=== PATIENT | male | born 1975 | race Caucasian/White ===

== ENCOUNTER 2017-09-17 01:10 | Emergency (ER) | payer OTHER ==
[2017-09-17] MEDS ORDERED: NA CHLORIDE 0.9% 1,000 ML ONE (02:12)
[2017-09-17 02:17] LABS: Absolute Lymphocytes (CBC) 2.2 K/uL (0.7-4.9); Absolute Monocytes 1.6 K/uL (0.1-1.3); Absolute Neutrophil 10.7 K/uL (1.8-8.0); Basophils % 0.3 % (0-1.3); Eosinophils % 1.5 % (0-4.4); Hematocrit 46.3 % (39.6-49.0); Lymphocytes % 14.7 % (15.3-44.8); MCV 91.4 fL (80-100); Monocytes % 10.9 % (3.3-12.3); RBC Red Blood Cell Count 5.07 M/uL (4.33-5.43)
[2017-09-17 02:23] LABS: Urine Blood 2+ (NEG); Urine Glucose NEGATIVE (NEG); Urine Protein NEGATIVE (NEG); Urine Specific Gravity >1.030 (1.005-1.030)
[2017-09-17 02:27] LABS: Urine Bacteria <20 /HPF (NONE SEEN); Urine Culture Reflex Order NOT NEEDED
[2017-09-17 02:28] LABS: Calcium Oxalate Crystals- Ur FEW (NONE SEEN)
[2017-09-17 02:46] LABS: Bilirubin Direct 0.1 mg/dL (0-0.2); Bilirubin Total 0.7 mg/dL (0.2-1.0); Potassium 3.9 mmol/L (3.5-5.1); Protein, Total 7.9 g/dL (6.4-8.2)
--- NOTE | 2017-09-17 05:30 | ER ---
Nurse's Notes [facility] Name: Hilario Sutton Age: 41 yrs Sex: Male : 1975 Arrival Date: 09/17/2017 Time: 01:14 Bed 13 Private MD: Diagnosis: Calculus of ureter Presentation: 09/17 01:39 Presenting complaint: Patient states: "I think I have a UTI, I had blood in my urine bs1 yesterday, I've been drinking a lot of water, the blood cleared up but I feel like I have the urge to go but I cant.". Transition of care: patient was not received from another setting of care. Onset of symptoms was September 16, 2017. Risk Assessment: Do you want to hurt yourself or someone else? Patient reports no desire to harm self or others. Initial Sepsis Screen: Does the patient meet any 2 criteria? No. Patient's initial sepsis screen is negative. Does the patient have a suspected source of infection? No. Patient's initial sepsis screen is negative. Care prior to arrival: None. 01:39 Method Of Arrival: Ambulatory bs1 01:39 Acuity: NERY 4 bs1 Historical: - Allergies: 01:41 No Known Allergies; bs1 - Home Meds: 01:41 None [Active]; bs1 - PMHx: 01:41 None; bs1 - PSHx: 01:41 None; bs1 - Immunization history:: Adult Immunizations up to date. - Social history:: Smoking status: Patient/guardian denies using tobacco. - Ebola Screening: : Patient negative for fever greater than or equal to 101.5 degrees Fahrenheit, and additional compatible Ebola Virus Disease symptoms Patient denies exposure to infectious person. Screenin:42 Abuse screen: Denies threats or abuse. Denies injuries from another. Nutritional bs1 screening: No deficits noted. Tuberculosis screening: No symptoms or risk factors identified. Fall Risk None identified. Assessment: 02:30 General: Appears in no apparent distress. uncomfortable, obese, Behavior is calm, bs1 cooperative, appropriate for age. Pain: Denies pain. Neuro: Level of Consciousness is awake, alert, obeys commands, Oriented to person, place, time, situation, Appropriate for age. Cardiovascular: Denies chest pain, shortness of breath, Heart tones S1 S2 present Capillary refill < 3 seconds Patient's skin is warm and dry. Respiratory: Airway is patent Trachea midline Respiratory effort is even, unlabored, Respiratory pattern is regular, symmetrical, Breath sounds are clear bilaterally. GI: Abdomen is round non-distended, Bowel sounds present X 4 quads. : Urine is blood tinged, yancy Reports inability to void, urgency, left flank pain during the day yesterday, none noted or reported at this time. Denies burning with urination. EENT: No signs and/or symptoms were reported regarding the EENT system. Derm: Skin is intact, Skin is pink, warm \\T\\ dry. normal. Musculoskeletal: Circulation, motion, and sensation intact. Capillary refill < 3 seconds, Range of motion: intact in all extremities. 03:30 Reassessment: Patient appears in no apparent distress at this time. Patient and/or bs1 family updated on plan of care and expected duration. Pain level reassessed. Patient is alert, oriented x 3, equal unlabored respirations, skin warm/dry/pink. Patient denies pain at this time. 04:45 Reassessment: Patient appears in no apparent distress at this time. No changes from bs1 previously documented assessment. Patient and/or family updated on plan of care and expected duration. Pain level reassessed. Patient is alert, oriented x 3, equal unlabored respirations, skin warm/dry/pink. Patient denies any blood in urine since NS bolus given. Patient states symptoms have improved. 04:49 Reassessment: Report given to HERNANDO Dimas informed of Pending CT scan. bs1 04:55 Reassessment: received patient lying on bed comfortable. vital signs stable. awaiting rv ct scan result. 05:45 Reassessment: PT D/C HOME AMBULATORY, DX WITH URETERAL CALCULUS. bp Vital Signs: 01:42 BP 149 / 69 LA Sitting (/lg); Pulse 88 LA; Resp 17; Temp 98.8(O); Pulse Ox 100% on R/A; bs1 Weight 175.09 kg (R); Height 5 ft. 11 in. (180.34 cm); Pain 0/10; 02:42 BP 136 / 60; Pulse 80; Resp 16; Pulse Ox 99% on R/A; bs1 03:42 BP 133 / 62; Pulse 72; Resp 17; Pulse Ox 99% on R/A; Pain 0/10; bs1 04:42 BP 125 / 88; Pulse 73; Resp 16 S; Temp 98.5(O); Pulse Ox 100% on R/A; Pain 0/10; bs1 01:42 Body Mass Index 53.84 (175.09 kg, 180.34 cm) bs1 ED Course: 01:14 Patient arrived in ED. es 01:36 Elaine Weber, RN is Primary Nurse. bs1 01:40 Triage completed. bs1 01:48 León Whitaker NP is PHCP. pm1 01:48 Lexa Mcintyre MD is Attending Physician. pm1 02:05 Inserted saline lock: 22 gauge in right forearm, using aseptic technique. Blood bs1 collected. 02:29 Patient has correct armband on for positive identification. Bed in low position. Call bs1 light in reach. Side rails up X 1. Pulse ox on. NIBP on. 02:30 Arm band placed on right wrist. bs1 03:26 CT Stone Protocol In Process Unspecified. EDMS 03:31 No provider procedures requiring assistance completed. bs1 04:10 CT completed. Patient tolerated procedure well. Patient moved to [place] WALKED. Patient eh moved back from [place]. 05:30 Freddy Nunez MD is Referral Physician. gs 05:45 IV discontinued, intact, bleeding controlled, No redness/swelling at site. Pressure bp dressing applied. Administered Medications: 02:13 Drug: NS 0.9% 1000 ml Route: IV; Rate: 1000 ml; Site: right forearm; bs1 06:02 Follow up: IV Status: Completed infusion; IV Intake: 1000ml bp 05:45 Drug: TORadol 30 mg Route: IVP; Site: right antecubital; bp 06:01 Follow up: Response: Medication administered at discharge. bp Intake: 06:02 IV: 1000ml; Total: 1000ml. bp Outcome: 05:30 Discharge ordered by . gs 05:45 Discharged to home ambulatory. bp 05:45 Condition: stable 05:45 Discharge instructions given to patient, Instructed on discharge instructions, follow up and referral plans. medication usage, Demonstrated understanding of instructions, follow-up care, medications, Prescriptions given X 1. 06:02 Patient left the ED. bp Signatures: Dispatcher [employer] EDPA Carlton, Madalyn es Aaron Bueno Patrick, TISSUE REWINDER TISSUE REWINDER pm1 Lexa Mcintyre MD MD gs Wing Millan, RN RN bp Elaine Weber, RN RN bs1 Itz Adorno, HERNANDO RN rv
--- NOTE | 2017-09-17 05:30 | EDPHYS ---
Physician Documentation [facility] Name: Hilario Sutton Age: 41 yrs Sex: Male : 1975 Arrival Date: 09/17/2017 Time: 01:14 Bed 13 Private MD: ED Physician Lexa Mcintyre HPI: 09/17 02:15 This 41 yrs old Male presents to ER via Ambulatory with complaints of Urinary pm1 Problem. 02:15 The patient presents with urinary symptoms, Hematuria. Onset: The symptoms/episode pm1 began/occurred yesterday. Modifying factors: The symptoms are alleviated by nothing, the symptoms are aggravated by nothing. Associated signs and symptoms: Pertinent positives: left flank pain, Pertinent negatives: abdominal pain, constipation, diarrhea, fever, nausea, vomiting. Severity of symptoms: in the emergency department the symptoms have improved. The patient has not experienced similar symptoms in the past. The patient has not recently seen a physician, and does not have an established primary care provider. Historical: - Allergies: 01:41 No Known Allergies; bs1 - Home Meds: 01:41 None [Active]; bs1 - PMHx: 01:41 None; bs1 - PSHx: 01:41 None; bs1 - Immunization history:: Adult Immunizations up to date. - Social history:: Smoking status: Patient/guardian denies using tobacco. - Ebola Screening: : Patient negative for fever greater than or equal to 101.5 degrees Fahrenheit, and additional compatible Ebola Virus Disease symptoms Patient denies exposure to infectious person. ROS: 02:15 Constitutional: Negative for fever, chills, and weight loss, Eyes: Negative for injury, pm1 pain, redness, and discharge, ENT: Negative for injury, pain, and discharge, Neck: Negative for injury, pain, and swelling, Cardiovascular: Negative for chest pain, palpitations, and edema, Respiratory: Negative for shortness of breath, cough, wheezing, and pleuritic chest pain, Abdomen/GI: Negative for abdominal pain, nausea, vomiting, diarrhea, and constipation. 02:15 MS/Extremity: Negative for injury and deformity, Skin: Negative for injury, rash, and discoloration, Neuro: Negative for headache, weakness, numbness, tingling, and seizure. 02:15 Back: Positive for flank pain, on the left. 02:15 : Positive for hematuria, difficulty urinating. Exam: 02:15 Constitutional: This is a well developed, well nourished patient who is awake, alert, pm1 and in no acute distress. Head/Face: Normocephalic, atraumatic. Eyes: Pupils equal round and reactive to light, extra-ocular motions intact. Lids and lashes normal. Conjunctiva and sclera are non-icteric and not injected. Cornea within normal limits. Periorbital areas with no swelling, redness, or edema. ENT: Nares patent. No nasal discharge, no septal abnormalities noted. Tympanic membranes are normal and external auditory canals are clear. Oropharynx with no redness, swelling, or masses, exudates, or evidence of obstruction, uvula midline. Mucous membranes moist. Neck: Trachea midline, no thyromegaly or masses palpated, and no cervical lymphadenopathy. Supple, full range of motion without nuchal rigidity, or vertebral point tenderness. No Meningismus. Chest/axilla: Normal chest wall appearance and motion. Nontender with no deformity. No lesions are appreciated. Cardiovascular: Regular rate and rhythm with a normal S1 and S2. No gallops, murmurs, or rubs. No pulse deficits. Respiratory: Lungs have equal breath sounds bilaterally, clear to auscultation and percussion. No rales, rhonchi or wheezes noted. No increased work of breathing, no retractions or nasal flaring. Abdomen/GI: Soft, non-tender, with normal bowel sounds. No distension or tympany. No guarding or rebound. No evidence of tenderness throughout. Back: No spinal tenderness. No costovertebral tenderness. Full range of motion. Skin: Warm, dry with normal turgor. Normal color with no rashes, no lesions, and no evidence of cellulitis. MS/ Extremity: Pulses equal, no cyanosis. Neurovascular intact. Full, normal range of motion. 02:15 Neuro: Orientation: is normal, Motor: is normal, moves all fours, Gait: is steady, at a normal pace, without difficulty. Vital Signs: 01:42 BP 149 / 69 LA Sitting (/lg); Pulse 88 LA; Resp 17; Temp 98.8(O); Pulse Ox 100% on R/A; bs1 Weight 175.09 kg (R); Height 5 ft. 11 in. (180.34 cm); Pain 0/10; 02:42 BP 136 / 60; Pulse 80; Resp 16; Pulse Ox 99% on R/A; bs1 03:42 BP 133 / 62; Pulse 72; Resp 17; Pulse Ox 99% on R/A; Pain 0/10; bs1 04:42 BP 125 / 88; Pulse 73; Resp 16 S; Temp 98.5(O); Pulse Ox 100% on R/A; Pain 0/10; bs1 01:42 Body Mass Index 53.84 (175.09 kg, 180.34 cm) bs1 MDM: 01:56 Patient medically screened. pm1 03:05 Data reviewed: vital signs. Data interpreted: Pulse oximetry: on room air is 100 %. pm1 Interpretation: normal. 09/17 01:49 Order name: Basic Metabolic Panel pm1 09/17 01:49 Order name: CBC with Diff pm1 09/17 01:49 Order name: Creatinine for Radiology pm1 09/17 01:49 Order name: Hepatic Function; Complete Time: 02:52 pm1 09/17 01:49 Order name: Lipase; Complete Time: 02:52 pm1 09/17 01:49 Order name: Urine Microscopic Only; Complete Time: 02:52 pm1 09/17 01:49 Order name: IV Saline Lock; Complete Time: 02:29 pm1 09/17 01:49 Order name: Basic Metabolic Panel; Complete Time: 02:52 EDMS 09/17 01:49 Order name: CBC with Automated Diff; Complete Time: 02:52 EDMS 09/17 02:12 Order name: Urine Dipstick--Ancillary (enter results); Complete Time: 02:52 2 09/17 02:52 Order name: CT Stone Protocol pm1 09/17 01:49 Order name: Labs collected and sent; Complete Time: 02:29 pm1 09/17 01:49 Order name: Urine Dipstick-Ancillary (obtain specimen); Complete Time: 02:30 pm1 Administered Medications: 02:13 Drug: NS 0.9% 1000 ml Route: IV; Rate: 1000 ml; Site: right forearm; bs1 06:02 Follow up: IV Status: Completed infusion; IV Intake: 1000ml bp 05:45 Drug: TORadol 30 mg Route: IVP; Site: right antecubital; bp 06:01 Follow up: Response: Medication administered at discharge. bp Disposition: 19:06 Co-signature as Attending Physician, Lexa Mcintyre MD. Disposition: 09/17/17 05:30 Discharged to Home. Impression: Calculus of ureter. - Condition is Stable. - Discharge Instructions: Kidney Stones, Ureteral Colic. - Prescriptions for Tylenol- Codeine #4 300-60 mg Oral Tablet - take 1 tablet by ORAL route every 6 hours As needed; 10 tablet. - Medication Reconciliation Form, Thank You Letter, Antibiotic Education, Prescription Opioid Use form. - Follow up: Freddy Nunez MD; When: 2 - 3 days; Reason: Re-evaluation by your physician. Signatures: Dispatcher [employer] EDCO León Whitaker, PLASTIC FINISHER PLASTIC FINISHER pm1 Lexa Mcintyre MD MD Wing Millan, RN RN bp Elaine Weber, RN RN bs1 Corrections: (The following items were deleted from the chart) 02:43 01:49 Creatinine (Radiology Only) ordered. [facility] 06:02 05:30 09/17/2017 05:30 Discharged to Home. Impression: Calculus of ureter. Condition is bp Stable. Forms are Medication Reconciliation Form, Thank You Letter, Antibiotic Education, Prescription Opioid Use. Follow up: Freddy Nunez; When: 2 - 3 days; Reason: Re-evaluation by your physician.
[2017-09-17] MEDS ORDERED: KETOROLAC 30 MG/ML INJ ONE (05:39)
--- NOTE | 2017-09-17 10:00 | RAD REPORT ---
EXAM DESCRIPTION: CT - Stone Protocol - 09/17/2017 6:26 am CLINICAL HISTORY: Abdominal pain. Left flank COMPARISON: None. TECHNIQUE: Computed axial tomography of the abdomen pelvis was obtained without oral or IV contrast. Lack of IV and oral contrast limits evaluation of solid organs, bowel, and vessels. Coronal reformat tasha images were obtained and reviewed. A preliminary report was generated by [employer] and maverick rollins prior to this dictation All CT scans are performed using dose optimization technique as appropriate and may include automated exposure control or mA/KV adjustment according to patient size. FINDINGS: Mild left hydronephrosis is seen. A renal calculus is not seen. A 2 millimeter calculus is present at the left ureterovesical junction. A bladder calculus is not present. The liver, spleen, pancreas and adrenals appear grossly normal There is no evidence of diverticulitis. The appendix appears normal. A small umbilical hernia contain s fat IMPRESSION: A 2 millimeter calculus is present at the left ureterovesical junction which results in mild left hydronephrosis
== END 2017-09-17 06:02 | disposition home or self-care (01) ==
LOC: ER 01:10
DX: N20.1 Calculus of ureter (principal)
CPT/HCPCS: 36415; 74176; 76377; 80048; 80076; 81003; 81015; 83690; 85025; 96361; 96374; 99284; J7030

== ENCOUNTER 2017-11-11 10:00 | Day surgery (SDC) | payer OTHER ==
--- NOTE | 2017-11-10 16:06 | RAD REPORT ---
EXAM DESCRIPTION: Samreen Joshi (2 Views)11/10/2017 4:01 pm CLINICAL HISTORY: Abdominal pain/preop for genitourinary calculus COMPARISON: None FINDINGS: The lungs appear clear of acute infiltrate. The heart is normal size IMPRESSION: No acute abnormalities displayed
[2017-11-10 16:31] LABS: Absolute Neutrophil 8.8 K/uL (1.8-8.0); Hematocrit 46.1 % (39.6-49.0); Lymphocytes % 16.5 % (15.3-44.8); MCH 30.9 pg (27.0-35.0); MCV 92.6 fL (80-100); MPV 9.9 fL (7.6-11.3); Monocytes % 8.2 % (3.3-12.3); RBC Red Blood Cell Count 4.98 M/uL (4.33-5.43); Urine Appearance CLOUDY; Urine Bilirubin NEGATIVE (NEG); Urine Blood 3+ (NEG); Urine Color YELLOW; Urine Glucose NEGATIVE (NEG); Urine Protein NEGATIVE (NEG); Urine Specific Gravity >=1.030 (1.005-1.030); Urine pH 5.5 (5.0-7.0)
[2017-11-10 16:36] LABS: Protime INR 0.97
[2017-11-10 16:42] LABS: Potassium 3.9 mmol/L (3.5-5.1); Urine Amorphous Sediment 1+ /HPF (NONE SEEN); Urine Bacteria NONE SEEN /HPF (NONE SEEN); Urine Culture Reflex Order NOT NEEDED; Urine Microscopic Reflex ORDER UMIC; Urine RBC >50 /HPF (NONE SEEN)
[2017-11-10 16:50] LABS: Phosphorus 4.6 mg/dL (2.5-4.9); Uric Acid 9.3 mg/dL (3.5-7.2)
--- NOTE | 2017-11-11 09:04 | EKG ---
Test Date: 2017-11-10 Test Time: 16:04:21 [employer] Worker: RACH MEASUREMENT RESULTS: Intervals: Rate: 80 GA: 116 QRSD: 90 QT: 386 QTc: 445 Isabella: P: 29 GA: 116 QRS: 28 T: 69 INTERPRETIVE STATEMENTS: Normal sinus rhythm Nonspecific ST and T wave abnormality Abnormal ECG No previous ECG available for comparison Electronically Signed On 11-11-17 09:03:28 CDT by Jaison Lock
[2017-11-11] MEDS ORDERED: GENTAMICIN 100 MG/100 ML BAG 100 MG/100 ML BAG IV ONE (10:40)
[2017-11-11] MEDS ORDERED: Ringers Lactate 1,000 ML IV ONE (10:40)
--- NOTE | 2017-11-11 10:51 | RAD REPORT ---
EXAM DESCRIPTION: RAD - Abdomen 1 View (KUB) - 11/11/2017 10:33 am CLINICAL HISTORY: Flank pain Pain COMPARISON: Abdomen Pelvis W/Wo Contrast dated 11/10/2017 FINDINGS: The bowel gas pattern is non-obstructive. No evidence of free air or pneumatosis. There is contrast in the left-sided renal pelvis. This likely related to the obstructing calculus close to th e left UPJ.
[2017-11-11] MEDS ORDERED: LIDOCAINE 1% MPF 5 ML VIAL ONE (11:59)
[2017-11-11] MEDS ORDERED: PROPOFOL 200 MG/20 ML VIAL IV ONE ×2 (11:59→12:20)
[2017-11-11] MEDS ORDERED: FENTANYL CITR 100 MCG/2 ML ONE (11:59)
[2017-11-11] MEDS ORDERED: ROCURONIUM 50 MG/5 ML VIAL IV ONE (12:07)
[2017-11-11] MEDS ORDERED: EPHEDRINE SULF 50 MG/10 ML SYR ONE (12:33)
[2017-11-11] MEDS ORDERED: ONDANSETRON HCL 40 MG/20 ML VIAL ONE (12:39)
[2017-11-11] MEDS ORDERED: KETOROLAC 30 MG/ML INJ ONE (12:39)
--- NOTE | 2017-11-11 12:58 | RAD REPORT ---
EXAM DESCRIPTION: RAD - Urography Retrograde - 11/11/2017 12:38 pm CLINICAL HISTORY: Left ureteral stent placement, left-sided kidney stone COMPARISON: None. FINDINGS: Fluoroscopic assisted placement of a left ureteral stent performed. Two cine loop acquisit ions were obtained. Fluoro time was 1 minutes 3 seconds. No suspicious or unexpected finding. IMPRESSION: Fluoroscopic assisted placement of a left ureteral stent. No suspicious or unexpected fi nding.
[2017-11-11] MEDS ORDERED: SUCCINYLCHOLINE 20 MG/ML (10 ML) IV ONE (13:27)
[2017-11-11] MEDS ORDERED: OXYBUTYNIN CHLORIDE 5 MG TAB ONE (13:43)
[2017-11-11] MEDS ORDERED: HYDROCODONE/APAP 10/325 TAB ONE (13:43)
== END 2017-11-11 14:25 | disposition home or self-care (01) ==
LOC: OR 10:00
PROVIDERS: ATTEND Urology
PROC: 0WHR8YZ Insertion of Other Device into Genitourinary Tract, Via Natural or Artificial Opening Endoscopic (ICD-10-PCS; 2017-11-11)
PROC: BT1FZZZ Fluoroscopy of Left Kidney, Ureter and Bladder (ICD-10-PCS; 2017-11-11)
PROC: 0T778DZ Dilation of Left Ureter with Intraluminal Device, Via Natural or Artificial Opening Endoscopic (ICD-10-PCS; principal; 2017-11-11 12:00)
DX: N20.1 Calculus of ureter (principal); N39.0 Urinary tract infection, site not specified; Q62.39 Other obstructive defects of renal pelvis and ureter; E66.9 Obesity, unspecified; Z87.891 Personal history of nicotine dependence; Z83.3 Family history of diabetes mellitus
CPT/HCPCS: 36415; 71046; 74018; 74420; 80048; 81003; 81015; 84100; 84550; 85025; 85610; 85730; 87077; 87086; 87088; 87186; 93005; J0330; J1580; J2405; J3010; Q9967

== ENCOUNTER 2018-09-18 00:24 | Emergency (ER) | payer OTHER ==
[2018-09-18 01:26] LABS: Urine Bacteria <20 /HPF (NONE SEEN); Urine Culture Reflex Order NOT NEEDED; Urine RBC >50 /HPF (NONE SEEN)
[2018-09-18] MEDS ORDERED: KETOROLAC 30 MG/ML INJ ONE ×2 (01:39→03:45)
[2018-09-18] MEDS ORDERED: ONDANSETRON 4 MG/2 ML VIAL ONE (01:39)
[2018-09-18 01:49] LABS: Basophils % 0.5 % (0-1.3); Eosinophils % 4.2 % (0-4.4); Hematocrit 46.5 % (39.6-49.0); Lymphocytes % 18.6 % (15.3-44.8); MPV 9.2 fL (7.6-11.3); Monocytes % 10.4 % (3.3-12.3); RBC Red Blood Cell Count 5.13 M/uL (4.33-5.43)
[2018-09-18 02:11] LABS: ALT/SGPT 82 U/L (12-78); AST/SGOT 31 U/L (15-37); Albumin 3.7 g/dL (3.4-5.0); Alkaline Phosphatase 72 U/L (45-117); BUN Blood Urea Nitrogen 17 mg/dL (7-18); Bicarbonate 24 mmol/L (21-32); Bilirubin Direct < 0.1 mg/dL (0-0.2); Bilirubin Total 0.4 mg/dL (0.2-1.0); Glucose Level 117 mg/dL (74-106); Lipase 79 U/L (73-393); Potassium 4.1 mmol/L (3.5-5.1); Protein, Total 7.2 g/dL (6.4-8.2); Sodium Level 138 mmol/L (136-145)
[2018-09-18] MEDS ORDERED: NA CHLORIDE 0.9% 1,000 ML ONE (02:18)
[2018-09-18 02:49] LABS: Urine Blood 3+ (NEG); Urine Glucose NEGATIVE (NEG); Urine Protein 1+ (NEG); Urine pH 5.5 (5.0-7.0)
--- NOTE | 2018-09-18 04:12 | ER ---
Nurse's Notes [facility] Name: Hilario Sutton Age: 42 yrs Sex: Male : 1975 Arrival Date: 09/18/2018 Time: 00:27 Bed 19 Private MD: Diagnosis: 4 mm distal right ureteral calculus with mild right hydroureteronephrosis Presentation: 09/18 00:30 Presenting complaint: Patient states: i started to pee blood at 830pm and started to rr5 have right lower abdominal pain. pain score 7/10. i was diagnose with dr. nunez before i am taking allopurinol for it. 00:30 Transition of care: patient was not received from another setting of care. Onset of rr5 symptoms was September 17, 2018 at 20:30. Risk Assessment: Do you want to hurt yourself or someone else? Patient reports no desire to harm self or others. Initial Sepsis Screen: Does the patient meet any 2 criteria? No. Patient's initial sepsis screen is negative. Does the patient have a suspected source of infection? No. Patient's initial sepsis screen is negative. Care prior to arrival: Medication(s) given: allopurinol. 00:30 Method Of Arrival: Ambulatory rr5 00:30 Acuity: NERY 3 rr5 Historical: - Allergies: 00:37 No Known Allergies; rr5 - Home Meds: 00:37 Allopurinol Oral [Active]; rr5 - PMHx: 00:37 Kidney stones; rr5 - PSHx: 00:37 None; rr5 - Immunization history:: Adult Immunizations up to date. - Social history:: Smoking status: Patient/guardian denies using tobacco, Patient/guardian denies using alcohol, street drugs. - Ebola Screening: : Patient negative for fever greater than or equal to 101.5 degrees Fahrenheit, and additional compatible Ebola Virus Disease symptoms Patient denies exposure to infectious person Patient denies travel to an Ebola-affected area in the 21 days before illness onset. Screenin:38 Abuse screen: Denies threats or abuse. Denies injuries from another. Nutritional rr5 screening: No deficits noted. Tuberculosis screening: No symptoms or risk factors identified. Fall Risk None identified. Total Cerrato Fall Scale indicates No Risk (0-24 pts). Assessment: 00:35 General: Appears in no apparent distress. uncomfortable, Behavior is calm, cooperative, rr5 appropriate for age. Pain: Complains of pain in right flank Pain radiates to right lower quadrant Pain currently is 7 out of 10 on a pain scale. Quality of pain is described as aching, Pain began gradually, Is intermittent. 00:35 Neuro: Level of Consciousness is awake, alert, obeys commands, Oriented to person, rr5 place, time, situation, Appropriate for age. Cardiovascular: Capillary refill < 3 seconds Patient's skin is warm and dry. Respiratory: Airway is patent Respiratory effort is even, unlabored, Respiratory pattern is regular, symmetrical. GI: Abdomen is obese, Reports lower abdominal pain, nausea. : Urine is blood tinged, Reports pain in right flank(s), blood in urine. EENT: No signs and/or symptoms were reported regarding the EENT system. Derm: No signs and/or symptoms reported regarding the dermatologic system. Musculoskeletal: Circulation, motion, and sensation intact. Capillary refill < 3 seconds. 01:20 Reassessment: Patient appears in no apparent distress at this time. No changes from rr5 previously documented assessment. 02:20 Reassessment: Patient appears in no apparent distress at this time. Patient is alert, rr5 oriented x 3, equal unlabored respirations, skin warm/dry/pink. awaiting for CT result. Patient denies pain at this time. Patient states feeling better. Patient states symptoms have improved. 02:30 Reassessment: Patient appears in no apparent distress at this time. Patient is alert, rr5 oriented x 3, equal unlabored respirations, skin warm/dry/pink. Patient states feeling better. Patient states symptoms have improved. 03:30 Reassessment: Patient appears in no apparent distress at this time. the pain coming rr5 back again as verbalized by the patient. ED provider informed with order made and carried out. 04:20 Reassessment: Patient appears in no apparent distress at this time. Patient is alert, rr5 oriented x 3, equal unlabored respirations, skin warm/dry/pink. discharge instruction given and explained without complaints made. Patient states feeling better. Patient states symptoms have improved. Vital Signs: 00:35 BP 181 / 108; Pulse 60; Resp 20; Temp 99.3; Pulse Ox 98% ; Weight 204.12 kg; Height 5 rr5 ft. 11 in. (180.34 cm); Pain 7/10; 01:30 BP 169 / 103; Pulse 62; Resp 17; Pulse Ox 99% on R/A; rr5 02:30 BP 151 / 95; Pulse 63; Resp 17; Pulse Ox 97% ; rr5 03:30 BP 171 / 85; Pulse 66; Resp 17; Temp 98.5; Pulse Ox 99% ; Pain 7/10; rr5 04:20 BP 149 / 78; Pulse 65; Resp 17; Temp 98.4; Pulse Ox 99% on R/A; Pain 0/10; rr5 00:35 Body Mass Index 62.76 (204.12 kg, 180.34 cm) rr5 ED Course: 00:27 Patient arrived in ED. am2 00:28 Branden Lopez, HERNANDO is Primary Nurse. rr5 00:29 Steve Ventura PA is PHCP. cp 00:29 Guanaco Warren MD is Attending Physician. cp 00:35 Triage completed. rr5 00:35 Arm band placed on. rr5 01:00 Patient has correct armband on for positive identification. Bed in low position. Call rr5 light in reach. 01:35 Inserted saline lock: 20 gauge in right forearm, using aseptic technique. Blood rr5 collected. 02:25 CT Stone Protocol In Process Unspecified. EDMS 04:07 Freddy Nunez MD is Referral Physician. pkl 04:25 No provider procedures requiring assistance completed. IV discontinued, intact, rr5 bleeding controlled, No redness/swelling at site. Pressure dressing applied. Administered Medications: 02:20 Drug: NS 0.9% 1000 ml Route: IV; Rate: 1 bolus; Site: right forearm; rr5 04:26 Follow up: Response: No adverse reaction; IV Status: Completed infusion; IV Intake: rr5 1000ml 03:35 Drug: TORadol 30 mg Route: IVP; Site: right forearm; rr5 04:25 Follow up: Response: No adverse reaction rr5 Intake: 04:26 IV: 1000ml; Total: 1000ml. rr5 Outcome: 04:11 Discharge ordered by . pkl 04:25 Discharged to home ambulatory. rr5 04:25 Condition: stable 04:25 Discharge instructions given to patient, Instructed on discharge instructions, follow up and referral plans. medication usage, Demonstrated understanding of instructions, follow-up care, medications, Prescriptions given X 2. 04:26 Patient left the ED. rr5 Signatures: Dispatcher [employer] EDMS Guanaco Warren MD MD pkl Page, Corey, PA PA cp Moreno, Amanda am2 Roque, Raymond, RN RN rr5
--- NOTE | 2018-09-18 04:12 | EDPHYS ---
Physician Documentation [facility] Name: Hilario Sutton Age: 42 yrs Sex: Male : 1975 Arrival Date: 09/18/2018 Time: 00:27 Bed 19 Private MD: ED Physician Guanaco Warren HPI: 09/18 00:35 This 42 yrs old Male presents to ER via Ambulatory with complaints of Flank cp Pain, Urinary Problem - blood. 00:35 The patient complains of pain in the right flank. cp 00:35 Onset: The symptoms/episode began/occurred last night. cp 00:35 Associated signs and symptoms: Pertinent positives: hematuria, Pertinent negatives: cp diarrhea, fever, headache, pain radiating to the lower extremities, vomiting. Severity of pain: in the emergency department the pain is a 7 / 10. The patient has experienced similar episodes in the past, today's symptoms are similar, to when the patient was apparently diagnosed with kidney stone. Historical: - Allergies: 00:37 No Known Allergies; rr5 - Home Meds: 00:37 Allopurinol Oral [Active]; rr5 - PMHx: 00:37 Kidney stones; rr5 - PSHx: 00:37 None; rr5 - Immunization history:: Adult Immunizations up to date. - Social history:: Smoking status: Patient/guardian denies using tobacco, Patient/guardian denies using alcohol, street drugs. - Ebola Screening: : Patient negative for fever greater than or equal to 101.5 degrees Fahrenheit, and additional compatible Ebola Virus Disease symptoms Patient denies exposure to infectious person Patient denies travel to an Ebola-affected area in the 21 days before illness onset. ROS: 00:40 Constitutional: Negative for body aches, chills, fever, poor PO intake. cp 00:40 Eyes: Negative for injury, pain, redness, and discharge. cp 00:40 ENT: Negative for drainage from ear(s), ear pain, sore throat, difficulty swallowing, difficulty handling secretions. 00:40 Cardiovascular: Negative for chest pain, edema, palpitations. 00:40 Respiratory: Negative for cough, shortness of breath, wheezing. 00:40 Abdomen/GI: Negative for nausea, vomiting, and diarrhea, constipation, black/tarry stool, rectal bleeding. 00:40 Back: Positive for flank pain, on the right. 00:40 : Positive for hematuria, Negative for difficulty urinating, testicular pain 00:40 Skin: Negative for cellulitis, rash. 00:40 Neuro: Negative for altered mental status, headache, weakness. 00:40 All other systems are negative. Exam: 00:50 Constitutional: The patient appears in no acute distress, alert, awake, non-toxic, well cp developed, well nourished, uncomfortable, morbid obesity 00:50 Head/Face: Normocephalic, atraumatic. cp 00:50 Eyes: Periorbital structures: appear normal, Conjunctiva: normal, no exudate, no injection, Sclera: no appreciated abnormality, Lids and lashes: appear normal, bilaterally. 00:50 ENT: External ear(s): are unremarkable, Nose: is normal, Mouth: is normal, Posterior pharynx: is normal, airway is patent. 00:50 Chest/axilla: Inspection: normal, Palpation: is normal, no crepitus, no tenderness. 00:50 Cardiovascular: Rate: normal, Rhythm: regular. 00:50 Respiratory: the patient does not display signs of respiratory distress, Respirations: normal, no use of accessory muscles, no retractions, no splinting, no tachypnea, labored breathing, is not present, Breath sounds: are clear throughout, no decreased breath sounds, no stridor, no wheezing. 00:50 Abdomen/GI: Inspection: obese Bowel sounds: active, all quadrants, Palpation: soft, in all quadrants, mild abdominal tenderness, in the anterior aspect of right lateral abdomen and posterior aspect of right lateral abdomen. 00:50 Neuro: Orientation: to person, place \T\ time. Mentation: is normal. Vital Signs: 00:35 BP 181 / 108; Pulse 60; Resp 20; Temp 99.3; Pulse Ox 98% ; Weight 204.12 kg; Height 5 rr5 ft. 11 in. (180.34 cm); Pain 7/10; 01:30 BP 169 / 103; Pulse 62; Resp 17; Pulse Ox 99% on R/A; rr5 02:30 BP 151 / 95; Pulse 63; Resp 17; Pulse Ox 97% ; rr5 03:30 BP 171 / 85; Pulse 66; Resp 17; Temp 98.5; Pulse Ox 99% ; Pain 7/10; rr5 04:20 BP 149 / 78; Pulse 65; Resp 17; Temp 98.4; Pulse Ox 99% on R/A; Pain 0/10; rr5 00:35 Body Mass Index 62.76 (204.12 kg, 180.34 cm) rr5 MDM: 00:29 Patient medically screened. cp 04:02 Data reviewed: vital signs, nurses notes, lab test result(s), radiologic studies, CT pkl scan. ED course: Patient feeling better. Pain improved. Discussed CT Scan results. Advised to follow up with Dr. Nunez in 2 to 3 days. Patient understood instructions. 09/18 00:32 Order name: Urine Microscopic Only; Complete Time: 02:59 cp 09/18 02:59 Interpretation: Normal except: URBC >50. cp 09/18 01:06 Order name: Basic Metabolic Panel 09/18 01:06 Order name: CBC with Diff; Complete Time: 02:59 cp 09/18 02:59 Interpretation: Normal except: WBC 11.0. 09/18 01:06 Order name: Creatinine for Radiology; Complete Time: 02:59 cp 09/18 01:06 Order name: Hepatic Function; Complete Time: 02:59 cp 09/18 01:06 Order name: Lipase; Complete Time: 02:59 cp 09/18 00:32 Order name: Urine Dipstick-Ancillary (obtain specimen); Complete Time: 00:39 cp 09/18 01:06 Order name: IV Saline Lock; Complete Time: 02:10 cp 09/18 01:06 Order name: Labs collected and sent; Complete Time: 02:10 09/18 01:07 Order name: Basic Metabolic Panel; Complete Time: 02:59 EDMS 09/18 02:59 Interpretation: Normal except: GLUC 117; GFR 78. cp 09/18 01:25 Order name: CT Stone Protocol 09/18 02:27 Order name: Urine Dipstick--Ancillary (enter results); Complete Time: 02:59 ag4 Administered Medications: 02:20 Drug: NS 0.9% 1000 ml Route: IV; Rate: 1 bolus; Site: right forearm; rr5 04:26 Follow up: Response: No adverse reaction; IV Status: Completed infusion; IV Intake: rr5 1000ml 03:35 Drug: TORadol 30 mg Route: IVP; Site: right forearm; rr5 04:25 Follow up: Response: No adverse reaction rr5 Disposition: 04:02 Co-signature as Attending Physician, Guanaco Warren MD. pkl Disposition: 09/18/18 04:11 Discharged to Home. Impression: 4 mm distal right ureteral calculus with mild right hydroureteronephrosis. - Condition is Stable. - Prescriptions for Tylenol- Codeine #3 300-30 mg Oral Tablet - take 2 tablet by ORAL route every 6 hours As needed; 30 tablet. Flomax 0.4 mg Oral Capsule, Sust. Release 24 hr - take 1 capsule by ORAL route once daily 1/2 hour following the same meal each day; 15 capsule. - Medication Reconciliation Form, Thank You Letter, Antibiotic Education, Prescription Opioid Use form. - Follow up: Freddy Nunez MD; When: 2 - 3 days; Reason: Re-evaluation by your physician. - Problem is new. - Symptoms have improved. Signatures: Dispatcher [employer] EDMS Guanaco Warren MD MD pkl Steve Ventura PA PA cp Roque, Raymond RN RN rr5 Corrections: (The following items were deleted from the chart) 04:26 04:11 09/18/2018 04:11 Discharged to Home. Impression: 4 mm distal right ureteral rr5 calculus with mild right hydroureteronephrosis. Condition is Stable. Forms are Medication Reconciliation Form, Thank You Letter, Antibiotic Education, Prescription Opioid Use. Follow up: Freddy Nunez; When: 2 - 3 days; Reason: Re-evaluation by your physician. Problem is new. Symptoms have improved. pkl
--- NOTE | 2018-09-19 13:48 | RAD REPORT ---
EXAM DESCRIPTION: CT - Stone Protocol - 09/18/2018 7:41 am JEM CALLE [id number] - Stone Protocol EXAM: CT Abdomen and Pelvis Without Intravenous Contrast CLINICAL HISTORY: The patient is 42 years old and is Male; FLANK PAIN TECHNIQUE: Axial computed tomography images of the abdomen and pelvis without intravenous contrast. Sagittal and coronal reformatted images were created and reviewed. This CT exam was performed usi ng one or more of the following dose reduction techniques: automated exposure control, adjustment o f the mA and/or kV according to patient size, and/or use of iterative reconstruction technique. COMPARISON: No relevant prior studies available. FINDINGS: LIMITATIONS: Suboptimal study secondary to artifact related to patient body habitus. LUNG BASES: Unremarkable. No mass. No consolidation. ABDOMEN: LIVER: The liver is enlarged and mildly fatty. GALLBLADDER AND BILE DUCTS: No calcified stones. No ductal dilation. PANCREAS: Mild atrophy of the pancreas is noted. No ductal dilation. SPLEEN: Unremarkable. ADRENALS: Unremarkable. No mass. KIDNEYS AND URETERS: Mild right hydroureteronephrosis is present secondary to a 4 mm distal righ t ureteral calculus. Right perinephric and periureteral stranding is noted. The left kidney is unre markable. STOMACH AND BOWEL: The stomach is well distended with food contents. The small bowel is normal i n caliber. Minimal stool is present throughout the colon. There is no mucosal thickening or evidence of bowel obstruction. PELVIS: APPENDIX: The appendix is normal in caliber without surrounding inflammation. BLADDER: The bladder is not well distended. REPRODUCTIVE: Unremarkable as visualized. ABDOMEN and PELVIS: INTRAPERITONEAL SPACE: Unremarkable. No free air. No significant fluid collection. BONES/JOINTS: No acute fracture. SOFT TISSUES: The soft tissues are normal. VASCULATURE: Unremarkable. No abdominal aortic aneurysm. LYMPH NODES: Unremarkable. No enlarged lymph nodes. IMPRESSION: Mild right hydroureteronephrosis is present secondary to a 4 mm distal right ureteral ca lculus. Electronically signed by: Susu Jordan MD 09/18/2018 2:32 AM CDT Due to temporary technical issues with the PACS/Fluency reporting system, reports are being signed by the in house radiologist as a courtesy to ensure prompt reporting. The interpreting radiologist is f ully responsible for the content of the report.
== END 2018-09-18 04:26 | disposition home or self-care (01) ==
LOC: ER 00:24
DX: N13.2 Hydronephrosis with renal and ureteral calculous obstruction (principal); Z87.442 Personal history of urinary calculi
CPT/HCPCS: 36415; 74176; 76377; 80048; 80076; 81003; 81015; 83690; 85025; 96361; 96374; 99284; J2405; J7030